=== PATIENT | female | born 1955 | race Caucasian/White ===

== ENCOUNTER 2021-08-24 11:54 | Inpatient (IN) | payer BC ==
[2021-08-24] VITALS (20 sets, daily range): BP systolic 95–148; BP diastolic 45–101
[~2021-08-24] VITALS: Ht 121.9 cm; Wt 49.0 kg
[~2021-08-24 11:54] MED LIST: LORA-259 PO
--- NOTE | 2021-08-24 11:59 | NUR ---
SEEN AND EXAMINED BY .
[2021-08-24] MEDS ORDERED: ONDANSETRON HCL/PF 4 MG/2 ML VIAL IVP ONE (12:00)
[2021-08-24] MEDS ORDERED: PANTOPRAZOLE 40 MG VIAL IV ONE (12:00)
[2021-08-24] MEDS ORDERED: OCTREOTIDE 50 MCG/ML AMPUL IV ONE (12:00)
[2021-08-24] MEDS ORDERED: IV NS 0.9% 1,000 ML BAG IV ONE (12:00)
[2021-08-24] MEDS ORDERED: ONDANSETRON HCL/PF 4 MG/2 ML VIAL ONE ×2 (12:04→14:19)
[2021-08-24] MEDS ORDERED: PANTOPRAZOLE 40 MG VIAL ONE (12:04)
--- NOTE | 2021-08-24 12:08 | NUR ---
IV LINE ESTABLISHED BLOOD DRAWN AND SENT TO LAB.
[2021-08-24] MEDS ORDERED: OCTREOTIDE 100 MCG/ML VIAL ONE (12:11)
[2021-08-24 12:17] LABS: BASOPHILS # (AUTO) 0.2 K/uL (0.0-0.2); BASOPHILS % (AUTO) 0.7 % (0.0-2.0); HEMATOCRIT 32 % (33-45); HEMOGLOBIN 10.4 g/dL (11.5-14.8); LYMPHOCYTES # (AUTO) 1.2 K/uL (0.8-4.8); LYMPHOCYTES % (AUTO) 5.6 % (20.0-44.0); MEAN CORPUSCULAR HGB CONC 33 g/dl (31.0-36.0); MEAN CORPUSCULAR VOLUME 79 fL (82-100); MONOCYTES # (AUTO) 1.8 K/uL (0.1-1.30); NEUTROPHILS # (AUTO) 19.1 K/uL (1.8-8.9); NEUTROPHILS % (AUTO) 85.7 % (43.0-81.0); PLATELET COUNT (AUTO) 474 K/uL (150-450); RED BLOOD CELL COUNT(AUTO) 4.02 MIL/uL (4.0-5.2); WHITE BLOOD COUNT (AUTO) 22.2 K/uL (4.3-11.0)
[2021-08-24 12:28] LABS: CALCIUM, SERUM 9.2 mg/dL (8.5-10.1); CREATININE 0.9 mg/dL (0.6-1.3); POTASSIUM 4.2 mmol/L (3.5-5.1)
[2021-08-24 12:33] LABS: ALBUMIN 3.5 g/dL (3.4-5.0); BILIRUBIN,DIRECT 0.1 mg/dL (0.0-0.2); BILIRUBIN,TOTAL 0.4 mg/dL (0.2-1.0); TOTAL PROTEIN, SERUM 7.3 g/dL (6.4-8.2)
[2021-08-24] MEDS ORDERED: FAMO-131 PO (13:31)
[2021-08-24] MEDS ORDERED: HYDR-4275 PO (13:31)
[2021-08-24] MEDS ORDERED: SUCR1TAB PO (13:31)
[2021-08-24] MEDS ORDERED: MORPHINE SULFATE INJ 2 MG/ML DISP.SYRIN IV ONE (14:00)
[2021-08-24] MEDS ORDERED: PIPERACILLIN /TAZOBACTAM 3.375 G in IV D5W 50 ML IV ONE (14:00)
[2021-08-24] MEDS ORDERED: MORPHINE SULFATE INJ 4 MG/ML DISP.SYRIN ONE (14:19)
--- NOTE | 2021-08-24 14:25 | NUR ---
PT C/O ABD PAIN & NAUSEA, MEDICATED PER ERMD ORDER, PT YAYA WELL. WILL CONT TO MONITOR.
[2021-08-24] MEDS ORDERED: ONDANSETRON HCL/PF 4 MG/2 ML VIAL IVP PRN (14:30)
[2021-08-24] MEDS ORDERED: MAGNESIUM HYDROXIDE 30 ML UDC PO PRN (14:30)
[2021-08-24] MEDS ORDERED: MAG HYDROX/AL HYDROX/SIMETH 30 ML UDC PO PRN (14:30)
[2021-08-24] MEDS ORDERED: ACETAMINOPHEN 325 MG TABLET PO PRN (14:30)
[2021-08-24] MEDS ORDERED: Z GUARD REMEDY 2 OZ OINT TP PRN (14:30)
--- NOTE | 2021-08-24 15:00 | NUR ---
PT HR 195, SHOWING SVT ON EKG. NOTIFIED ERMD.
[2021-08-24] MEDS ORDERED: ADENOSINE 6 MG/2 ML VIAL ONE (15:07)
--- NOTE | 2021-08-24 15:14 | NUR ---
GIVEN 6MG OF ADENOSIN IVP
--- NOTE | 2021-08-24 15:17 | NUR ---
GIVEN 12 MG OF ADENOSINE IVP.
[2021-08-24] MEDS ORDERED: PROPOFOL 20 ML IV ONE (15:26)
[2021-08-24] MEDS ORDERED: ADENOSINE 6 MG/2 ML VIAL IVP ONE ×2 (15:30)
--- NOTE | 2021-08-24 15:33 | NUR ---
SYNCHRONIZED CARDIOVERSION PERFORMED, HR CONVERTED TO SINUS TACH, HR 127.
--- NOTE | 2021-08-24 15:40 | NUR ---
PT AAOX4, SLEEPY. DENIES CP, SOB, DIZZINESS, N/V AT THIS TIME. WILL CONT TO MONITOR.
--- NOTE | 2021-08-24 15:41 | NUR ---
CALLED ICU FOR REPORT RN NOT AVAILABLE.
--- NOTE | 2021-08-24 15:55 | NUR ---
REPORT GIVEN RN SHARAN FOR THADDEUS.
[2021-08-24] MEDS ORDERED: IV NS 0.9% 500 ML BAG IV ONE (16:00)
[2021-08-24] MEDS ORDERED: PROPOFOL 200 MG/20 ML VIAL IV ONE (16:00)
--- NOTE | 2021-08-24 16:10 | NUR ---
Patient received from ED, noted with sinus tach and no c/o chest pain. Patient is alert and oriented and anxious. Patient provided decreased stimuli. Nursing interventions and assessments started.
[2021-08-24] MEDS: IV NS 0.9% 1,000 ML IV PRN (16:20)
[2021-08-24] MEDS: PIPERACILLIN /TAZOBACTAM 3.375 G in IV D5W 50 ML IV SCH ×2 (18:17→23:45)
[2021-08-24] MEDS: HYDROMORPHONE 1 MG/1 ML DISP.SYRIN IV PRN (18:21)
--- NOTE | 2021-08-24 18:37 | NUR ---
TOOL STORAGE ATTENDANT CLOSING NOTES Patient is alert and oriented and resting in bed. Tele monitor showing sinus tachycardia.Noted with right upper arm 20 gauze saline lock and left upper arm midline 20 gauze running normal saline at 100 cc/hour. Patient provided bed workman for urine. Patient c/o 8/10 back pain and requested pain medication. Patient given prn pain med with good effect.Will endorse to next shift for THADDEUS. Patient is in good stable condition and with family member at bedside.
[2021-08-24 20:17] LABS: BASOPHILS % (AUTO) 0.1 % (0.0-2.0); HEMATOCRIT 25 % (33-45); HEMOGLOBIN 8.1 g/dL (11.5-14.8); LYMPHOCYTES # (AUTO) 1.3 K/uL (0.8-4.8); LYMPHOCYTES % (AUTO) 5.8 % (20.0-44.0); MEAN CORPUSCULAR HGB CONC 33 g/dl (31.0-36.0); MEAN CORPUSCULAR VOLUME 79 fL (82-100); MONOCYTES # (AUTO) 2.9 K/uL (0.1-1.30); MONOCYTES % (AUTO) 12.9 % (2.0-12.0); NEUTROPHILS # (AUTO) 18.5 K/uL (1.8-8.9); NEUTROPHILS % (AUTO) 81.2 % (43.0-81.0); PLATELET COUNT (AUTO) 331 K/uL (150-450); RED BLOOD CELL COUNT(AUTO) 3.08 MIL/uL (4.0-5.2); WHITE BLOOD COUNT (AUTO) 22.8 K/uL (4.3-11.0)
[2021-08-24] MEDS: PANTOPRAZOLE 40 MG VIAL IV SCH (21:44)
[2021-08-25] VITALS (48 sets, daily range): BP systolic 96–145; BP diastolic 50–94
[2021-08-25] MEDS: HYDROMORPHONE 1 MG/1 ML DISP.SYRIN IV PRN ×4 (00:27→22:21)
[2021-08-25] MEDS: IV NS 0.9% 1,000 ML IV PRN ×3 (01:26→23:18)
--- NOTE | 2021-08-25 01:33 | NUR ---
RN notes (beginning of shift) Alert and oriented, able to communicate needs verbally. In bed resting comfortably with no distress noted. On 3 lpm O2 via nasal cannula tolerating well. Still tachycardic with HR of 120 to 130bpm. As of this time, no complaint of pain or discomfort. Continent, uses bed workman. On 100mils/hr NS, tolerating well. NPO. Kept clean and dry. Will continue to monitor.
[2021-08-25] MEDS: PIPERACILLIN /TAZOBACTAM 3.375 G in IV D5W 50 ML IV SCH ×4 (05:40→23:59)
[2021-08-25 05:59] LABS: CALCIUM, SERUM 7.9 mg/dL (8.5-10.1); CREATININE 0.5 mg/dL (0.6-1.3); MAGNESIUM 2.1 mg/dL (1.8-2.4); PHOSPHORUS 3.2 mg/dL (2.5-4.9); POTASSIUM 4.2 mmol/L (3.5-5.1)
[2021-08-25 06:14] LABS: BASOPHILS % (AUTO) 0.2 % (0.0-2.0); HEMATOCRIT 21 % (33-45); LYMPHOCYTES # (AUTO) 2.1 K/uL (0.8-4.8); LYMPHOCYTES % (AUTO) 9.6 % (20.0-44.0); MEAN CORPUSCULAR HGB CONC 34 g/dl (31.0-36.0); MEAN CORPUSCULAR VOLUME 79 fL (82-100); MONOCYTES # (AUTO) 1.9 K/uL (0.1-1.30); MONOCYTES % (AUTO) 8.7 % (2.0-12.0); NEUTROPHILS # (AUTO) 18.1 K/uL (1.8-8.9); NEUTROPHILS % (AUTO) 81.5 % (43.0-81.0); PLATELET COUNT (AUTO) 274 K/uL (150-450); RED BLOOD CELL COUNT(AUTO) 2.62 MIL/uL (4.0-5.2); WHITE BLOOD COUNT (AUTO) 22.2 K/uL (4.3-11.0)
--- NOTE | 2021-08-25 06:52 | NUR ---
RN notes (end of shift) Patient was awake all night complaining of abdominal pain, Dilaudid 1mg administered x2. At about 03:00 patient was requesting for sleeping pills, explained that it is already too late for sleeping pill. Patient understood. Had urine output every hour using bed workman. Vital signs wnl. No distress noted. Still on 3lpm O2 via nasal cannula. Lab called regarding Hemoglobin level 10.4 to 7.0. Called MD, waiting for response. Kept clean and dry. Will endorse to next shift for continuity of care.
--- NOTE | 2021-08-25 06:57 | NUR ---
RN notes (end of shift) No significant change of condition. Still sedated. No physical manifestation of pain or discomfort. Vital signs wnl. Kept clean and dry. Will endorse to next shift for continuity of care.
--- NOTE | 2021-08-25 07:30 | NUR ---
CIVIL ENGINEERING PROFESSOR AM NOTES PT ALERT ORIENTED X 4, ABLE TO VERBALIZED NEEDS. NOT IN ANY DISTRESS, ON 3L O2 VIA NASAL CANULA, O2 SAT 88%. SINUS RHYTHM HR 94 ON MONITOR. DENIES CHEST PAIN OR DISCOMFORT, MAY HAVE ICE CHIPS, USES BED ROMERO. NS AT 100 ML/HR, INFUSING WELL ON LEFT UPPER ARM MIDLINE. SITE CLEAR. POC DISCUSSED, VERBALIZED UNDERSTANDING. BED LOW LOCKED, SR UPX 2, WILL CONTINUE TO MONITOR.
[2021-08-25] MEDS: PANTOPRAZOLE 40 MG VIAL IV SCH ×2 (08:42→20:20)
[2021-08-25] MEDS: HYDROCODONE/APAP 5/325MG TABLET PO SCH (08:42)
--- NOTE | 2021-08-25 09:30 | NUR ---
RN NOTES DUE MEDS GIVEN
--- NOTE | 2021-08-25 11:36 | NUR ---
RN NOTES SPOKE WITH [facility] LAB STAFF REGARDING FAXED ORDER FOR STAT REPEAT HEMOGLOBIN HEMATOCRIT. PER HIM, FAX RECEIVED.
[2021-08-25 11:59] LABS: HEMOGLOBIN 6.5 g/dL (11.5-14.8)
[2021-08-25 14:39] LABS: HEMOGLOBIN 6.8 g/dL (11.5-14.8)
--- NOTE | 2021-08-25 18:39 | NUR ---
SECURITY GUARD SUPERVISOR CLOSING NOTES PT ALERT ORIENTED X 4, RESTING IN BED. ABLE TO VERBALIZED NEEDS. NOT IN ANY DISTRESS, ON 3L O2 VIA NASAL CANULA, O2 SAT 88%-97%. SINUS RHYTHM HR 90s - 111 ON MONITOR. DENIES CHEST PAIN OR DISCOMFORT, SOFT DIET. USES BED ROMERO. NS AT 100 ML/HR, INFUSING WELL ON LEFT UPPER ARM MIDLINE. SITE CLEAR. BED LOW LOCKED, SR UPX 2, WILL ENDORSED TO NEXT SHIFT FOR THADDEUS. PATIENT HAD 1 UNIT PRBC. FOR REPEAT HGB/HCT 2200
--- NOTE | 2021-08-25 19:00 | NUR ---
RN NOTE RECEIVED PATIENT IN BED RESTING ALERT ORIENTED X4 VERBALLY RESPONSIVE ON 3L OXYGEN VIA NASAL CANNULA O2:98% IV SITE IS ON LEFT UPPER ARM MIDLINE INTACT PATENT IV HYDRATION NS 100CC/HR RUNNING,CONTENT BOWEL/BLADDER,SAFETY MEASURE IMPLEMENT BED IN LOW POSITION AND LOCKED CALL LIGHT WITHIN REACH,CONTINUE TO MONITOR. Addendum: 08/25/21 at 2035 by BRANDT DIALLO RN PLS DISREGARD THIS NOTE IS WRONG DOCUMENTATION
--- NOTE | 2021-08-25 22:21 | NUR ---
RN NOTE DILAUDID 1ML PAIN MED PRN GIVEN FOR BACK PAIN 05/18 CONTINUE TO MONITOR
[2021-08-25 22:25] LABS: HEMOGLOBIN 7.7 g/dL (11.5-14.8)
[2021-08-26] VITALS (17 sets, daily range): BP systolic 96–137; BP diastolic 46–101
--- NOTE | 2021-08-26 | NUR ---
RN NOTE PAIN IS 2/10 CONTINUE TO MONITOR.
--- NOTE | 2021-08-26 01:00 | NUR ---
RN NOTE CAUGHT URINE FOR URINE ANALYSIS AND SENT TO LAB,CONTINUE TO MONITOR.
[2021-08-26 02:06] LABS: BILIRUBIN,URINE NEGATIVE (NEGATIVE); COLOR,URINE YELLOW (YELLOW); LEUKOCYTE ESTERASE ,URINE NEGATIVE (NEGATIVE); NITRITE, URINE NEGATIVE (NEGATIVE); PROTEIN,URINE NEGATIVE (NEGATIVE); UGLUCOSE NEGATIVE (NEGATIVE); UROBILINOGEN,URINE 0.2 EU/dL (0.2)
[2021-08-26 05:31] LABS: BASOPHILS % (AUTO) 0.3 % (0.0-2.0); EOSINOPHILS % (AUTO) 0.1 % (0.0-6.0); HEMATOCRIT 22 % (33-45); HEMOGLOBIN 7.6 g/dL (11.5-14.8); LYMPHOCYTES # (AUTO) 2.4 K/uL (0.8-4.8); LYMPHOCYTES % (AUTO) 25.7 % (20.0-44.0); MEAN CORPUSCULAR HGB CONC 34 g/dl (31.0-36.0); MEAN CORPUSCULAR VOLUME 81 fL (82-100); MONOCYTES % (AUTO) 10.6 % (2.0-12.0); NEUTROPHILS # (AUTO) 5.8 K/uL (1.8-8.9); NEUTROPHILS % (AUTO) 63.3 % (43.0-81.0); PLATELET COUNT (AUTO) 188 K/uL (150-450); RED BLOOD CELL COUNT(AUTO) 2.72 MIL/uL (4.0-5.2); WHITE BLOOD COUNT (AUTO) 9.2 K/uL (4.3-11.0)
[2021-08-26] MEDS: PIPERACILLIN /TAZOBACTAM 3.375 G in IV D5W 50 ML IV SCH ×3 (05:38→17:17)
[2021-08-26 05:39] LABS: ALBUMIN 2.6 g/dL (3.4-5.0); BILIRUBIN,TOTAL 0.6 mg/dL (0.2-1.0); CALCIUM, SERUM 7.6 mg/dL (8.5-10.1); CREATININE 0.4 mg/dL (0.6-1.3); POTASSIUM 3.6 mmol/L (3.5-5.1); TOTAL PROTEIN, SERUM 4.9 g/dL (6.4-8.2)
[2021-08-26 06:28] LABS: BACTERIA,URINE Few /HPF (None Seen); SQUAMOUS EPITHELIAL CELL,UR Few /HPF (None Seen)
--- NOTE | 2021-08-26 06:31 | NUR ---
RN NOTE PATIENT REMAINS ALERT ORIENTED X4 VERBALLY RESPONSIVE ON 3L OXYGEN VIA NASAL CANNULA O2:97% IV NS RUNNING 100CC/HR ON LEFT UPPER ARM MIDLINE,HR 75 -90 SINUS RHYTHM ALL DUE MEDS GIVEN MD ORDERED KEPT CLEAN AND DRY ALL TIME,KEPT CALL LIGHT WITHIN REACH, KEPT COMFORTABLE ALL NEEDS MET,ENDORSE NEXT COMING SHIFT FOR CONTINUATION OF CARE.
--- NOTE | 2021-08-26 07:05 | NUR ---
RN OPENING NOTES Received patient in bed. AOX4, ABLE TO MAKE NEEDS KNOWN, ON O2 @ 3LPM VIA NC SATURATING @ 99%. NO S/O OF ANY ACUTE DISTRESS NOTED. SAFETY PRECAUTIONS MAINTAINED AT ALL TIMES. WILL CONTINUE TO MONITOR
[2021-08-26] MEDS: HYDROCODONE/APAP 5/325MG TABLET PO SCH (08:55)
[2021-08-26] MEDS: PANTOPRAZOLE 40 MG VIAL IV SCH ×2 (08:55→21:09)
[2021-08-26 10:55] LABS: FERRITIN 149 ng/mL (8-388)
[2021-08-26] MEDS: FERROUS SULFATE (325 MG) 325 MG/TAB TABLET PO SCH ×3 (11:17→16:30)
[2021-08-26] MEDS ORDERED: IV NS 0.9% 1,000 ML IV PRN (11:39)
[2021-08-26 12:17] LABS: IRON, SERUM 98 ug/dl (50-175); TOTAL IRON BINDING CAPACITY 228 ug/dl (250-450)
--- NOTE | 2021-08-26 13:03 | NUR ---
Transferred patient to [facility] room 324-2 per ACLS protocol. Report given to OMAR Santoyo @[facility] for continuity of care
--- NOTE | 2021-08-26 13:07 | NUR ---
COMBINATION WELDERSPECIMEN TRANSPORTER NOTES RECEIVED PATIENT FROM ICU. REPORT RECEIVED FROM OMAR CHASE. PT IS A/O X 4. ABLE TO MAKE NEEDS KNOWN. NO S/SX OF DISTRESS NOTED. ON 3L OXYGEN SUPPLEMENTATION VIA NASAL CANNULA. BREATHING IS EVEN AND UNLABORED. NO C/O PAIN AT THIS TIME. ORIENTED PT TO UNIT, CALL LIGHT AND STAFF. IV ACCESS KODAK MIDLINE PATENT AND INTACT. EXTERNAL TRANSCRIPTION SPECIALIST PLACED ON PATIENT WITH SR READING IN 70'S. SAFETY MEASURES IN PLACE WITH BED LOCKED AT LOW POSITION AND SIDE RAILS UP X 2. WILL CONTINUE TO MONITOR PATIENT FOR CHANGES IN CONDITION.
[2021-08-26 14:11] LABS: HEMOGLOBIN 7.9 g/dL (11.5-14.8)
--- NOTE | 2021-08-26 19:05 | NUR ---
ORNAMENTAL PAINTER CLOSING NOTES PT IS RESTING COMFORTABLY IN BED. NO S/SX OF DISTRESS NOTED. ON 3L OXYGEN SUPPLEMENTATION VIA NASAL CANNULA. BREATHING IS EVEN AND UNLABORED. NO C/O PAIN AT THIS TIME. NO SIGNIFICANT CHANGES IN CONDITIONS. IV ACCESS KODAK MIDLINE PATENT AND INTACT WITH NS RUNNING AT 40MLS/HR. EXTERNAL CAREER DEVELOPMENT FACILITATOR PLACED ON PATIENT WITH SR READING IN 70'S. SAFETY MEASURES IN PLACE WITH BED LOCKED AT LOW POSITION AND SIDE RAILS UP X 2. WILL ENDORSE CONTINUITY OF CARE TO ONCOMING SHIFT.
[2021-08-26 20:55] LABS: HEMOGLOBIN 7.8 g/dL (11.5-14.8)
[2021-08-26] MEDS: LORAZEPAM INJ 2 MG/ML VIAL IV PRN (21:27)
--- NOTE | 2021-08-26 23:00 | NUR ---
CIPHER EXPERT NOTE PATIENT NOTED TO HAVE SCANT AMOUNT OF BLACK STOOL WHEN ASSISTED TO THE BATHROOM. PER PATINET SHE DID NOT EVEN FEEL THAT SHE HAD BOWEL MOVEMENT. WILL CONTINUE TO MONITOR.
[2021-08-27 00:32] VITALS: BP 143/96
[2021-08-27] MEDS: PIPERACILLIN /TAZOBACTAM 3.375 G in IV D5W 50 ML IV SCH ×2 (00:44→05:41)
[2021-08-27 03:59] VITALS: BP 111/70
[2021-08-27 06:52] LABS: ALBUMIN 2.5 g/dL (3.4-5.0); BILIRUBIN,TOTAL 0.3 mg/dL (0.2-1.0); CALCIUM, SERUM 8.4 mg/dL (8.5-10.1); CREATININE 0.4 mg/dL (0.6-1.3); POTASSIUM 3.5 mmol/L (3.5-5.1); TOTAL PROTEIN, SERUM 5.3 g/dL (6.4-8.2)
[2021-08-27 07:05] LABS: BASOPHILS % (AUTO) 0.3 % (0.0-2.0); HEMATOCRIT 23 % (33-45); HEMOGLOBIN 7.8 g/dL (11.5-14.8); LYMPHOCYTES # (AUTO) 2.7 K/uL (0.8-4.8); LYMPHOCYTES % (AUTO) 34.1 % (20.0-44.0); MEAN CORPUSCULAR HGB CONC 34 g/dl (31.0-36.0); MEAN CORPUSCULAR VOLUME 84 fL (82-100); MONOCYTES # (AUTO) 0.8 K/uL (0.1-1.30); NEUTROPHILS # (AUTO) 4.3 K/uL (1.8-8.9); NEUTROPHILS % (AUTO) 54.6 % (43.0-81.0); PLATELET COUNT (AUTO) 217 K/uL (150-450); RED BLOOD CELL COUNT(AUTO) 2.75 MIL/uL (4.0-5.2); WHITE BLOOD COUNT (AUTO) 7.8 K/uL (4.3-11.0)
--- NOTE | 2021-08-27 07:22 | NUR ---
MOLDER SWEEP OPENING NOTES RECEIVED PATIENT AWAKE IN BED IN NO ACUTE SIGNS OF DISTRESS. A/OX4. ABLE TO MAKE NEEDS KNOWN, DENIES PAIN OR ANY DISCOMFORTS AT THIS TIME. ON PRN 02 VIA N/C AT 2LPM, BREATHING EVEN AND UNLABORED, NO SOB NOTED. ON TELE-MONITOR WITH CURRENT READING OF NSR, HR ON THE 80'S, NO C/O CARDIAC DISTRESS VOICED AT THIS TIME. KODAK MIDLINE INTACT WITH IVF OF NS @ 40ML/HR INFUSING WELL. SAFETY MEASURES IN PLACE: BED IN LOWEST LOCKED POSITION WITH SR UPX2. CALL LIGHT W/I EASY REACH OF PT. WILL CONTINUE TO MONITOR PT ACCORDINGLY.
--- NOTE | 2021-08-27 07:26 | NUR ---
ms rn note report given to OMAR Raphael for continuity of care.
[2021-08-27 08:00] VITALS: BP_SYST 132; BP_SYST 143; BP_DIAS 70; BP_DIAS 74
[2021-08-27] MEDS: PANTOPRAZOLE 40 MG VIAL IV SCH ×2 (09:00→20:32)
[2021-08-27] MEDS: HYDROCODONE/APAP 5/325MG TABLET PO SCH (09:00)
[2021-08-27] MEDS: FERROUS SULFATE (325 MG) 325 MG/TAB TABLET PO SCH ×3 (09:00→16:09)
[2021-08-27] MEDS: METOPROLOL TARTRATE 25 MG TABLET PO SCH ×2 (11:18→20:33)
[2021-08-27 12:00] VITALS: BP 117/75
--- NOTE | 2021-08-27 12:38 | NUR ---
RN NOTES SEEN BY DR HUMPHREY, NO PROCEDURE NEEDED AT THIS TIME PT WILL HAVE EGD OUTPT NEXT WEEK.
[2021-08-27 15:23] LABS: HEMOGLOBIN 8.1 g/dL (11.5-14.8)
[2021-08-27 16:00] VITALS: BP 117/75
--- NOTE | 2021-08-27 18:35 | NUR ---
CIGARETTE PACKING MACHINE OPERATOR CLOSING NOTES PATIENT IN BED AWAKE AND WATCHING TV AT THIS TIME. HOB ELEVATED. A/OX4. ABLE TO MAKE NEEDS KNOWN. ON PRN 02 VIA N/C AT 2LPM, BREATHING EVEN AND UNLABORED, NO SOB NOTED. ON TELE-MONITOR WITH CURRENT READING OF ST, HR 104, NO C/O CARDIAC DISTRESS VOICED DURING SHIFT. KODAK MIDLINE INTACT, PATENT AND FLUSHES WELL. ALL NEEDS AND CARE ATTENDED WELL. SAFETY MEASURES KEPT IN PLACE: BED IN LOWEST LOCKED POSITION WITH SR UPX2. CALL LIGHT W/I EASY REACH OF PT. WILL ENDORSE THADDEUS TO GERIATRIC NURSE NURSE.
--- NOTE | 2021-08-27 19:30 | NUR ---
RN OPENING NOTE PATIENT IN BED, AWAKE AND SITTING UP. PATIENT IS ABLE TO MAKE NEEDS KNOWN, A/O X 4. PATIENT IS CURRENTLY ON RA TOLERATING WELL. NOT ARISTEO ANY APPARENT RESPIRATORY DISTRESS. PATIENT HAS 2LPM PRN FOR PATIENT'S COMFORT. TELE MONITOR READS ST 103 BPM, NO CHEST PAIN. PATIENT HAS A KODAK MIDLINE PATENT AND INTACT, FLUSHING WELL, SALINE LOCKED ONLY. NO REPORTS OF PAIN AT THIS TIME. SAFETY MEASURES IN PLACE: BED LOCKED AND IN LOWEST POSITION, CALL LIGHT WITHIN REACH, SIDE RAILS UP. WILL MONITOR PATIENT CLOSELY.
[2021-08-27 20:00] VITALS: BP 146/66
[2021-08-27] MEDS: LORAZEPAM INJ 2 MG/ML VIAL IV PRN (20:33)
--- NOTE | 2021-08-27 20:35 | NUR ---
ATIVAN GIVEN FOR ANXIETY AND TYLENOL FOR TEMP 99.9. WILL REASSESS MED EFFECTIVENESS AT A LATER TIME
[2021-08-27 22:48] LABS: HEMOGLOBIN 8.3 g/dL (11.5-14.8)
[2021-08-28] VITALS (7 sets, daily range): BP systolic 118–162; BP diastolic 71–93
[2021-08-28 06:34] LABS: BASOPHILS % (AUTO) 0.3 % (0.0-2.0); EOSINOPHILS % (AUTO) 2.8 % (0.0-6.0); HEMATOCRIT 26 % (33-45); HEMOGLOBIN 8.6 g/dL (11.5-14.8); LYMPHOCYTES # (AUTO) 3.4 K/uL (0.8-4.8); LYMPHOCYTES % (AUTO) 43.3 % (20.0-44.0); MEAN CORPUSCULAR HGB CONC 34 g/dl (31.0-36.0); MEAN CORPUSCULAR VOLUME 83 fL (82-100); NEUTROPHILS # (AUTO) 3.2 K/uL (1.8-8.9); NEUTROPHILS % (AUTO) 40.6 % (43.0-81.0); PLATELET COUNT (AUTO) 246 K/uL (150-450); RED BLOOD CELL COUNT(AUTO) 3.08 MIL/uL (4.0-5.2); WHITE BLOOD COUNT (AUTO) 7.8 K/uL (4.3-11.0)
--- NOTE | 2021-08-28 06:39 | NUR ---
RN CLOSING NOTE PATIENT IN BED, SLEEPING, EASILY AWAKENED. PATIENT IS ABLE TO MAKE NEEDS KNOWN, A/O X 4. PATIENT IS CURRENTLY ON RA TOLERATING WELL. NOT IN ANY APPARENT RESPIRATORY DISTRESS. TELE MONITOR READS ST 103 BPM, NO CHEST PAIN. PATIENT HAS A KODAK MIDLINE PATENT AND INTACT, FLUSHING WELL, SALINE LOCKED ONLY. NO REPORTS OF PAIN AT THIS TIME. ANXIETY MANAGED WITH ATIVAN. SAFETY MEASURES IMPLEMENTED. ALL NEEDS MET AND ATTENDED. ALL ORDERS CARRIED OUT. WILL ENDORSE TO DAY SHIFT NURSE FOR THADDEUS.
[2021-08-28 06:50] LABS: ALBUMIN 2.5 g/dL (3.4-5.0); BILIRUBIN,TOTAL 0.3 mg/dL (0.2-1.0); CREATININE 0.4 mg/dL (0.6-1.3); MAGNESIUM 1.9 mg/dL (1.8-2.4); PHOSPHORUS 3.2 mg/dL (2.5-4.9); POTASSIUM 3.7 mmol/L (3.5-5.1); TOTAL PROTEIN, SERUM 5.5 g/dL (6.4-8.2)
--- NOTE | 2021-08-28 07:30 | NUR ---
NOTE TAKER OPENING NOTES PATIENT RECEIVED ASLEEP IN BED, EASILY AWAKENS. A/OX4. ABLE TO MAKE NEEDS KNOWN, DENIES PAIN OR ANY DISCOMFORTS AT THIS TIME. ON ROOM AIR, BREATHING EVEN AND UNLABORED, NO SOB NOTED. ON TELE-MONITOR WITH CURRENT READING OF NSR, CURRENTLY WITH HR OF 88, NO C/O CARDIAC DISTRESS VOICED AT THIS TIME. KODAK MIDLINE INTACT, PATENT AND FLUSHES WELL. SAFETY MEASURES IN PLACE: BED IN LOWEST LOCKED POSITION WITH SR UPX2. CALL LIGHT W/I EASY REACH OF PT. WILL CONTINUE TO MONITOR PT ACCORDINGLY.
[2021-08-28] MEDS: METOPROLOL TARTRATE 25 MG TABLET PO SCH ×2 (08:22→20:46)
[2021-08-28] MEDS: FERROUS SULFATE (325 MG) 325 MG/TAB TABLET PO SCH ×3 (08:22→16:19)
[2021-08-28] MEDS: PANTOPRAZOLE 40 MG VIAL IV SCH (08:22)
[2021-08-28] MEDS: HYDROCODONE/APAP 5/325MG TABLET PO SCH (08:23)
[2021-08-28] MEDS ORDERED: INFLUENZA VACCINE 2021-22 0.5 ML DISP.SYRIN IM ONE (11:30)
[2021-08-28] MEDS: HYDROMORPHONE 1 MG/1 ML DISP.SYRIN IV PRN ×2 (12:17→18:22)
--- NOTE | 2021-08-28 12:23 | NUR ---
RN NOTES PT MOANING AND GRIMACING WITH C/O PAIN ON MID UPPER CHEAT AND LOWER OBEY PRN DILAUDID 1MG/ML IVP ADMINISTERED AT 1217. WILL CONTINUE TO MONITOR AND REASSESS PT.
[2021-08-28] MEDS: PANTOPRAZOLE 40 MG TABLET.DR PO SCH (16:20)
--- NOTE | 2021-08-28 16:58 | NUR ---
RN NOTES PT FOR EGD TOMORROW BY DR HUMPHREY, PROCEDURE EXPLAINED TO PT AND VERBALIZED UNDERSTANDING. ALL CONSENTS SIGNED AND NPO EXCEPT MEDS TO BE ENFORCED POST MIDNIGHT.
--- NOTE | 2021-08-28 18:27 | NUR ---
RN NOTES PT C/O PAIN ON MID UPPER CHEST AND LOWER BACK PRN DILAUDID 1MG/ML IVP ADMINISTERED AT 1822. WILL CONTINUE TO MONITOR AND REASSESS PT.
--- NOTE | 2021-08-28 18:50 | NUR ---
BALLOON ARTIST CLOSING NOTES PATIENT RESTING IN BED AT THIS TIME. A/OX4. ABLE TO MAKE NEEDS KNOWN. ON ROOM AIR, BREATHING EVEN AND UNLABORED, NO SOB NOTED DURING SHIFT. ON TELE-MONITOR WITH CURRENT READING OF NSR, HR 99. KODAK MIDLINE INTACT, PATENT AND FLUSHES WELL. ALL NEEDS AND CARE ATTENDED WELL. PT FOR EGD TOMORROW, NPO POST MIDNIGHT TO BE ENFORCED. SAFETY MEASURES KEPT IN PLACE: BED IN LOWEST LOCKED POSITION WITH SR UPX2. CALL LIGHT W/I EASY REACH OF PT. WILL ENDORSE THADDEUS TO [employer] DYNAMICS CONSULTANT NURSE.
--- NOTE | 2021-08-28 19:35 | NUR ---
HELP DESK SUPERVISOR OPENING NOTE RECEIVED PATIENT IN BED. A/OX4. NO S/S OF APPARENT DISTRESS ON ROOM AIR. DENIES PAIN AT THIS TIME. PATIENT ABLE TO MAKE NEEDS KNOWN-- NEEDS ATTENDED AT THE MOMENT. TELE MONITOR READING SR IN THE 90'S NO FLUIDS RUNNING AT THIS TIME. SAFETY IN PLACE. WILL CONTINUE WITH PLAN OF CARE FOR PATIENT.
[2021-08-28] MEDS: LORAZEPAM INJ 2 MG/ML VIAL IV PRN (21:26)
--- NOTE | 2021-08-28 21:26 | NUR ---
CAR INSTALLATIONS SUPERVISOR NOTE 0.5ML ATIVAN GIVEN AT THIS TIME PER PATIENT REQUEST. PER PATIENT SHE IS VERY ANXIOUS THINKING ABOUT THE PROCEDURE TOMORROW. THERAPEUTIC COMMUNICATION APPLIED. SATURATION WNL 97%. WILL CONTINUE TO MONITOR.
[2021-08-29] VITALS (7 sets, daily range): BP systolic 113–155; BP diastolic 55–94
[2021-08-29 06:47] LABS: BASOPHILS % (AUTO) 0.2 % (0.0-2.0); EOSINOPHILS % (AUTO) 2.9 % (0.0-6.0); HEMATOCRIT 26 % (33-45); HEMOGLOBIN 8.8 g/dL (11.5-14.8); LYMPHOCYTES # (AUTO) 3.1 K/uL (0.8-4.8); LYMPHOCYTES % (AUTO) 32.6 % (20.0-44.0); MEAN CORPUSCULAR HGB CONC 34 g/dl (31.0-36.0); MEAN CORPUSCULAR VOLUME 83 fL (82-100); MONOCYTES # (AUTO) 1.2 K/uL (0.1-1.30); NEUTROPHILS % (AUTO) 52.3 % (43.0-81.0); PLATELET COUNT (AUTO) 303 K/uL (150-450); RED BLOOD CELL COUNT(AUTO) 3.16 MIL/uL (4.0-5.2); WHITE BLOOD COUNT (AUTO) 9.6 K/uL (4.3-11.0)
[2021-08-29 07:26] LABS: CALCIUM, SERUM 8.6 mg/dL (8.5-10.1); CREATININE 0.4 mg/dL (0.6-1.3); PHOSPHORUS 4.3 mg/dL (2.5-4.9); POTASSIUM 3.8 mmol/L (3.5-5.1)
--- NOTE | 2021-08-29 07:37 | NUR ---
REAL ESTATE LEASING AGENT OPENING NOTES RECEIVED Pt ASLEEP IN BED. EASILY AROUSABLE, A/OX4. NO S/S OF APPARENT DISTRESS. BREATHING ON ROOM AIR, IS EVEN AND UNLABORED. DENIES PAIN AT THIS TIME. IV ACCESS ON L UA MIDLINE, SALINE LOCK. SAFETY MEASURE ARE IN PLACE, BED IS LOCKED AND IN LOWEST POSITION. SIDE RAILS UP X 2. CALL LIGHT AND BEDSIDE TABLE ARE WITHIN REACH. WILL CONTINUE TO MONITOR THROUGHOUT THE SHIFT.
--- NOTE | 2021-08-29 07:39 | NUR ---
telemarketer note report given to Luisana benjamin for continuity of care.
[2021-08-29] MEDS: METOPROLOL TARTRATE 25 MG TABLET PO SCH ×2 (08:25→21:38)
[2021-08-29] MEDS: PANTOPRAZOLE 40 MG TABLET.DR PO SCH ×2 (08:25→16:23)
[2021-08-29] MEDS: HYDROCODONE/APAP 5/325MG TABLET PO SCH (08:26)
[2021-08-29] MEDS: FERROUS SULFATE (325 MG) 325 MG/TAB TABLET PO SCH ×3 (08:26→16:23)
[2021-08-29] MEDS: HYDROMORPHONE 1 MG/1 ML DISP.SYRIN IV PRN ×3 (10:22→22:31)
--- NOTE | 2021-08-29 13:58 | NUR ---
DIRECTOR DATA ARCHITECTURE NOTES Pt IS BACK FROM EGD PROCEDURE. A/O X4. NO SIGNS OF DISTRESS AT THIS TIME. NO COMPLAINTS OF PAIN AT THIS MOMENT. VS ARE 126/83, 98 FAHRENHEIT, 95% O2 ON ROOM AIR, HEART RATE IS 87 BMP. WILL CONTINUE TO MONITOR.
--- NOTE | 2021-08-29 19:30 | NUR ---
OFFICE WORKFORCE PLANNER OPENING NOTE RECEIVED PATIENT IN BED. A/OX4. NO S/S OF APPARENT DISTRESS ON ROOM AIR. NO C/O PAIN BUT DOES FEEL ANXIOUS-- REQUESTING ATIVAN, WILL GIVE. TELE MONITOR READING SR 98. NO FLUIDS RUNNING AT THIS TIME. S/P EGD-- RESUMED ON SOFT DIET-- WILL CONTINUE TO MONITOR. SAFETY IN PLACE. WILL CONTINUE WITH WITH PLAN OF CARE FOR PATIENT.
--- NOTE | 2021-08-29 19:38 | NUR ---
TARIFF EXPERT CLOSING NOTES Pt RESTING IN BED AT THIS TIME. A/OX4. ABLE TO MAKE NEEDS KNOWN. ON ROOM AIR, BREATHING EVEN AND UNLABORED, NO SOB NOTED DURING SHIFT. KODAK MIDLINE INTACT, PATENT AND FLUSHES WELL. ALL NEEDS MET AT THIS TIME. SAFETY MEASURES KEPT IN PLACE: BED IS LOCKED AND IN LOWEST POSITION WITH SR UPX2. CALL LIGHT AND BEDSIDE TABLE WITHIN EASY REACH OF Pt. BEDSIDE COMMODE ALSO WITHIN EASY REACH. WILL ENDORSE TO ONCOMING SHIFT
[2021-08-29] MEDS: LORAZEPAM INJ 2 MG/ML VIAL IV PRN (19:41)
[2021-08-29] MEDS: SUCRALFATE 1 G/10 ML UDC PO SCH ×2 (21:37→22:00)
[2021-08-30] VITALS: BP 134/70
[2021-08-30] MEDS: LORAZEPAM INJ 2 MG/ML VIAL IV PRN ×2 (03:00→21:14)
[2021-08-30 04:00] VITALS: BP 110/54
[2021-08-30] MEDS: HYDROMORPHONE 1 MG/1 ML DISP.SYRIN IV PRN ×2 (06:13→15:00)
[2021-08-30 06:39] LABS: BASOPHILS % (AUTO) 0.3 % (0.0-2.0); EOSINOPHILS % (AUTO) 3.6 % (0.0-6.0); HEMATOCRIT 26 % (33-45); HEMOGLOBIN 8.8 g/dL (11.5-14.8); LYMPHOCYTES # (AUTO) 2.9 K/uL (0.8-4.8); LYMPHOCYTES % (AUTO) 36.7 % (20.0-44.0); MEAN CORPUSCULAR HGB CONC 34 g/dl (31.0-36.0); MEAN CORPUSCULAR VOLUME 84 fL (82-100); MONOCYTES # (AUTO) 1.2 K/uL (0.1-1.30); MONOCYTES % (AUTO) 15.5 % (2.0-12.0); NEUTROPHILS # (AUTO) 3.5 K/uL (1.8-8.9); NEUTROPHILS % (AUTO) 43.9 % (43.0-81.0); PLATELET COUNT (AUTO) 323 K/uL (150-450); RED BLOOD CELL COUNT(AUTO) 3.12 MIL/uL (4.0-5.2); WHITE BLOOD COUNT (AUTO) 7.9 K/uL (4.3-11.0)
--- NOTE | 2021-08-30 07:25 | NUR ---
ANIMAL STICKER OPENING NOTES RECEIVED PT ASLEEP IN BED, EASY TO AROUSE. PT IS A/O X 4. ABLE TO MAKE NEEDS KNOWN. NO S/SX OF DISTRESS NOTED. ON ROOM AIR, TOLERATING WELL. BREATHING IS EVEN AND UNLABORED. NO C/O PAIN AT THIS TIME. IV ACCESS KODAK MIDLINE PATENT AND INTACT. EXTERNAL INSURANCE ASSISTANT PLACED ON PATIENT WITH SR READING IN 70'S. SAFETY MEASURES IN PLACE WITH BED LOCKED AT LOW POSITION AND SIDE RAILS UP X 2. WILL CONTINUE TO MONITOR PATIENT FOR CHANGES IN CONDITION.
--- NOTE | 2021-08-30 07:31 | NUR ---
MS RN NOTE REPORT GIVEN TO FIORDALIZA FOR CONTINUITY OF CARE.
[2021-08-30 07:39] LABS: CALCIUM, SERUM 8.5 mg/dL (8.5-10.1); CREATININE 0.4 mg/dL (0.6-1.3); MAGNESIUM 2.2 mg/dL (1.8-2.4); PHOSPHORUS 4.1 mg/dL (2.5-4.9); POTASSIUM 3.8 mmol/L (3.5-5.1)
[2021-08-30 08:00] VITALS: BP 157/77
[2021-08-30] MEDS: HYDROCODONE/APAP 5/325MG TABLET PO SCH (08:41)
[2021-08-30] MEDS: SUCRALFATE 1 G/10 ML UDC PO SCH ×4 (08:41→21:03)
[2021-08-30] MEDS: PANTOPRAZOLE 40 MG TABLET.DR PO SCH ×2 (08:41→16:59)
[2021-08-30] MEDS: FERROUS SULFATE (325 MG) 325 MG/TAB TABLET PO SCH ×3 (08:42→16:59)
[2021-08-30] MEDS: METOPROLOL TARTRATE 25 MG TABLET PO SCH ×2 (08:42→21:04)
[2021-08-30 11:22] LABS: EOSINOPHILS % (MANUAL) 4 % (0-4); LYMPHOCYTES % (MANUAL) 40 % (16-48); MONOCYTES % (MANUAL) 13 % (0-11.0); NEUTROPHILS % (MANUAL) 43 (42-76)
[2021-08-30 12:00] VITALS: BP 136/67
--- NOTE | 2021-08-30 15:01 | NUR ---
RN NOTE PT C/O BACK PAIN 8/10 LEVEL ADMINISTERED DILAUDID AT THIS TIME. WILL CONT TO MONITOR PATIENT AND REASSESS.
[2021-08-30 16:00] VITALS: BP 143/86
[2021-08-30] MEDS ORDERED: SUCR1ORA4 PO (18:48)
[2021-08-30] MEDS ORDERED: PANT40TA2 PO (18:48)
--- NOTE | 2021-08-30 18:57 | NUR ---
CINDER BLOCK MAKER CLOSING NOTES PT ASLEEP IN BED, EASY TO AROUSE. NO S/SX OF DISTRESS NOTED. ON ROOM AIR, TOLERATING WELL. BREATHING IS EVEN AND UNLABORED. NO C/O PAIN AT THIS TIME. IV ACCESS KODAK MIDLINE PATENT AND INTACT. EXTERNAL AMMUNITION SPECIALIST PLACED ON PATIENT WITH SR READING IN 70'S. SAFETY MEASURES MAINTAINED. NO SIGNIFICANT CHANGE IN CONDITION DURING SHIFT. CALL LIGHT IS WITHIN REACH. WILL ENDORSE CONTINUITY OF CARE TO ONCOMING SHIFT.
--- NOTE | 2021-08-30 19:20 | NUR ---
TELE/RN OPENING NOTE RECEIVED PATIENT RESTING IN BED. AWAKE, ALERT AND ORIENTED X 4. ABLE TO MAKE NEEDS KNOWN. DENIES PAIN AT THIS TIME. CONTINUES ON ROOM AIR WITH NO S/SX OF RESPIRATORY DISTRESS NOTED. IV ACCESS TO LEFT UPPER ARM MIDLINE #18G INTACT, PATENT AND SALINE LOCKED. CONTINUES ON TELE MONITOR WITH CURRENT READING SR. PATIENT TO DISCHARGE IN AM. CALL LIGHT WITHIN REACH. ASPIRATION, FALL AND SAFETY PRECAUTIONS MAINTAINED. WILL CONTINUE TO MONITOR.
[2021-08-30 20:00] VITALS: BP 144/82
[2021-08-30] MEDS: HYDROCODONE/APAP 5/325MG TABLET PO PRN ×2 (21:04→21:14)
[2021-08-31] VITALS: BP 134/68
[2021-08-31 04:00] VITALS: BP 129/71
--- NOTE | 2021-08-31 06:30 | NUR ---
TELE/RN CLOSING NOTE PATIENT CURRENTLY SLEEPING IN BED. ALERT AND ORIENTED X 4. ABLE TO MAKE NEEDS KNOWN. DENIES PAIN AT THIS TIME. CONTINUES ON ROOM AIR WITH NO S/SX OF RESPIRATORY DISTRESS NOTED. IV ACCESS TO LEFT UPPER ARM MIDLINE #18G INTACT, PATENT AND SALINE LOCKED. CONTINUES ON TELE MONITOR WITH CURRENT READING SR. PATIENT TO DISCHARGE THIS AM. CALL LIGHT WITHIN REACH. ASPIRATION, FALL AND SAFETY PRECAUTIONS MAINTAINED. WILL ENDORSE PLAN OF CARE TO ONCOMING SHIFT.
--- NOTE | 2021-08-31 07:30 | NUR ---
TELE/RN OPENING NOTE RECEIVED PATIENT RESTING IN BED. AWAKE, ALERT AND ORIENTED X 4. ABLE TO MAKE NEEDS KNOWN. DENIES PAIN AT THIS TIME. CONTINUES ON ROOM AIR WITH NO S/SX OF RESPIRATORY DISTRESS NOTED. IV ACCESS TO LEFT UPPER ARM MIDLINE #18G INTACT, PATENT AND SALINE LOCKED. CONTINUES ON TELE MONITOR WITH CURRENT READING ST HR 102. CALL LIGHT WITHIN REACH. ASPIRATION, FALL AND SAFETY PRECAUTIONS MAINTAINED. WILL CONTINUE TO MONITOR.
[2021-08-31 08:00] VITALS: BP 139/85
[2021-08-31] MEDS: SUCRALFATE 1 G/10 ML UDC PO SCH (08:48)
[2021-08-31] MEDS: PANTOPRAZOLE 40 MG TABLET.DR PO SCH (08:48)
[2021-08-31 08:49] VITALS: BP 139/85
[2021-08-31] MEDS: METOPROLOL TARTRATE 25 MG TABLET PO SCH (08:49)
[2021-08-31] MEDS: FERROUS SULFATE (325 MG) 325 MG/TAB TABLET PO SCH (08:49)
--- NOTE | 2021-08-31 11:21 | NUR ---
CHILD CUSTODY EVALUATOR NOTES DISCHARGED PATIENT IN STABLE CONDITION. VITAL SIGNS WITHIN NORMAL LIMITS. DISCHARGE AND FOLLOW UP INSTRUCTIONS DISCUSSED WITH PATIENT, PATIENT VERBALIZED UNDERSTANDING. BELONGINGS ACCOUNTED AND SIGNED FOR. IV ACCESS REMOVED. COVERED WITH GAUZE, NO S/SX OF BLEEDING NOTED. WHEELED TO LOBBY SAFELY ACCOMPANIED BY OBDULIO (ELIANA). LEFT UNIT IN STABLE CONDITION. MD AND CHARGE NURSE AWARE OF DISCHARGE.
== END 2021-08-31 13:25 | disposition home or self-care (01) | DRG 368 ==
LOC: ER 11:56 → ICU 15:44 → MED 08-26 12:50 → TELE 08-26 12:59
PROVIDERS: ADMIT Nurse Practitioner Acute Care; ATTEND Nurse Practitioner Acute Care
PROC: 05H633Z Insertion of Infusion Device into Left Subclavian Vein, Percutaneous Approach (ICD-10-PCS; 2021-08-24)
PROC: B547ZZA Ultrasonography of Left Subclavian Vein, Guidance (ICD-10-PCS; 2021-08-24)
PROC: 5A2204Z Restoration of Cardiac Rhythm, Single (ICD-10-PCS; 2021-08-24)
PROC: 30233N1 Transfusion of Nonautologous Red Blood Cells into Peripheral Vein, Percutaneous Approach (ICD-10-PCS; principal; 2021-08-25)
PROC: 0DJ08ZZ Inspection of Upper Intestinal Tract, Via Natural or Artificial Opening Endoscopic (ICD-10-PCS; 2021-08-29)
DX: K21.01 Gastro-esophageal reflux disease with esophagitis, with bleeding (principal); I21.A1 Myocardial infarction type 2; E87.1 Hypo-osmolality and hyponatremia; I47.1 Supraventricular tachycardia; D62 Acute posthemorrhagic anemia; K76.0 Fatty (change of) liver, not elsewhere classified; E86.9 Volume depletion, unspecified; I10 Essential (primary) hypertension; K44.9 Diaphragmatic hernia without obstruction or gangrene; D50.0 Iron deficiency anemia secondary to blood loss (chronic); E86.1 Hypovolemia; M89.9 Disorder of bone, unspecified; K21.9 Gastro-esophageal reflux disease without esophagitis; R13.10 Dysphagia, unspecified; G89.29 Other chronic pain; F41.9 Anxiety disorder, unspecified; E34.3 Short stature due to endocrine disorder; K57.30 Diverticulosis of large intestine without perforation or abscess without bleeding; F10.10 Alcohol abuse, uncomplicated; Y90.3 Blood alcohol level of 60-79 mg/100 ml; Z20.822 Contact with and (suspected) exposure to COVID-19; I95.9 Hypotension, unspecified; E83.9 Disorder of mineral metabolism, unspecified; M48.00 Spinal stenosis, site unspecified; I35.1 Nonrheumatic aortic (valve) insufficiency
CPT/HCPCS: 36415; 71045-TC; 80048-TC; 80053-TC; 80076-TC; 81001; 82728-TC; 83540-TC; 83690-TC; 83735-TC; 84100-TC; 84484-TC; 85025-TC; 85027-TC; 85610-TC; 85730-TC; 86850-TC; 87040-TC; 87081-TC; 93307-TC; C9113; C9803; G0378; G0480; J0153; J1170; J2060; J2270; J2354; J2405; J2543; J2704; J3490; J7030; J7050; J7060; P9016; Q2036

== ENCOUNTER 2021-10-18 10:46 | Inpatient (IN) | payer BC, MEDICARE ==
[~2021-10-18] VITALS: Ht 121.9 cm; Wt 47.6 kg
[~2021-10-18 10:46] MED LIST changes: +HYDR-4275 PO; -LORA-259 PO; +PANT40TA2 PO; +SUCR1ORA4 PO
[2021-10-18] MEDS ORDERED: IV NS 0.9% 1,000 ML BAG IV ONE (11:00)
[2021-10-18] MEDS ORDERED: ONDANSETRON HCL/PF 4 MG/2 ML VIAL IVP ONE ×2 (11:00→13:00)
[2021-10-18] MEDS ORDERED: PANTOPRAZOLE 40 MG VIAL IV ONE (11:00)
--- NOTE | 2021-10-18 11:00 | NUR ---
BIBRA 89 FROM HOME AOX4 C/O NAUSEA/ VOMITING AND CHEST/EPIGASTRIC PAIN FOR 2 DAYS. DENIES FEVERS OR SOB. PT CHANGED INTO GOWN AND HOOKED UP TO COKE BURNER.
--- NOTE | 2021-10-18 11:03 | NUR ---
dr wong at bedside for eval.
--- NOTE | 2021-10-18 11:10 | NUR ---
IV LINE ESTABLISHED. BLOOD OBTAINED AND SENT TO LAB
[2021-10-18] MEDS ORDERED: ONDANSETRON HCL/PF 4 MG/2 ML VIAL ONE ×3 (11:15→14:44)
[2021-10-18] MEDS ORDERED: PANTOPRAZOLE 40 MG VIAL ONE (11:15)
--- NOTE | 2021-10-18 11:15 | NUR ---
SINGH PETERS AT BEDSIDE FOR EKG
[2021-10-18 11:34] LABS: BASOPHILS # (AUTO) 0.1 K/uL (0.0-0.2); BASOPHILS % (AUTO) 0.4 % (0.0-2.0); HEMATOCRIT 36 % (33-45); HEMOGLOBIN 11.6 g/dL (11.5-14.8); LYMPHOCYTES # (AUTO) 1.4 K/uL (0.8-4.8); LYMPHOCYTES % (AUTO) 6.4 % (20.0-44.0); MEAN CORPUSCULAR HGB CONC 33 g/dl (31.0-36.0); MEAN CORPUSCULAR VOLUME 78 fL (82-100); MONOCYTES % (AUTO) 4.4 % (2.0-12.0); NEUTROPHILS # (AUTO) 19.3 K/uL (1.8-8.9); NEUTROPHILS % (AUTO) 88.8 % (43.0-81.0); PLATELET COUNT (AUTO) 616 K/uL (150-450); RED BLOOD CELL COUNT(AUTO) 4.55 MIL/uL (4.0-5.2); WHITE BLOOD COUNT (AUTO) 21.7 K/uL (4.3-11.0)
[2021-10-18 11:47] LABS: CALCIUM, SERUM 9.7 mg/dL (8.5-10.1); CREATININE 0.6 mg/dL (0.6-1.3); POTASSIUM 3.8 mmol/L (3.5-5.1)
[2021-10-18 11:54] LABS: ALBUMIN 3.9 g/dL (3.4-5.0); BILIRUBIN,DIRECT 0.2 mg/dL (0.0-0.2); BILIRUBIN,TOTAL 0.5 mg/dL (0.2-1.0); TOTAL PROTEIN, SERUM 8.2 g/dL (6.4-8.2)
[2021-10-18] MEDS ORDERED: IV NS 0.9% 250 ML IV ONE (12:11)
[2021-10-18] MEDS ORDERED: IOHEXOL-300 100 ML VIAL IV ONE (12:11)
--- NOTE | 2021-10-18 12:21 | NUR ---
URINE COLLECTED AND SENT TO LAB
[2021-10-18] MEDS ORDERED: MORPHINE SULFATE INJ 2 MG/ML DISP.SYRIN IV ONE (13:00)
[2021-10-18] MEDS ORDERED: PIPERACILLIN /TAZOBACTAM 3.375 G in IV D5W 50 ML IV ONE (13:00)
--- NOTE | 2021-10-18 13:10 | NUR ---
CALLED NURSING EXECUTIVE COACH FOR M/S BED.
[2021-10-18] MEDS ORDERED: MORPHINE SULFATE INJ 4 MG/ML DISP.SYRIN ONE ×2 (13:25→18:44)
[2021-10-18] MEDS ORDERED: MAG HYDROX/AL HYDROX/SIMETH 30 ML UDC PO PRN (13:30)
[2021-10-18] MEDS: PANTOPRAZOLE 40 MG VIAL IV SCH (13:30)
[2021-10-18] MEDS ORDERED: LORAZEPAM INJ 2 MG/ML VIAL IV PRN (13:30)
[2021-10-18] MEDS ORDERED: Z GUARD REMEDY 4 OZ OINT TP PRN (13:30)
[2021-10-18] MEDS ORDERED: ONDANSETRON HCL/PF 4 MG/2 ML VIAL IVP PRN (13:30)
[2021-10-18] MEDS ORDERED: Thiamine 100 MG in IV D5W 50 ML IV SCH (14:00)
--- NOTE | 2021-10-18 14:02 | NUR ---
ordered iv protonix not given. pprotonix given earlier.
--- NOTE | 2021-10-18 14:32 | NUR ---
BEDPAN PROVIDED REQUESTED
[2021-10-18 14:40] LABS: BILIRUBIN,URINE NEGATIVE (NEGATIVE); COLOR,URINE YELLOW (YELLOW); LEUKOCYTE ESTERASE ,URINE TRACE (NEGATIVE); NITRITE, URINE NEGATIVE (NEGATIVE); PROTEIN,URINE NEGATIVE (NEGATIVE); UGLUCOSE NEGATIVE (NEGATIVE); UROBILINOGEN,URINE 0.2 EU/dL (0.2)
[2021-10-18] MEDS ORDERED: LORAZEPAM INJ 2 MG/ML VIAL ONE (14:52)
[2021-10-18] MEDS ORDERED: ENOXAPARIN SODIUM 30 MG/0.3 ML DISP.SYRIN SQ SCH (15:00)
--- NOTE | 2021-10-18 15:00 | NUR ---
PT C/O NAUSEA NOT RELEIVED BY ZOFRAN. MADE AWARE
[2021-10-18] MEDS: IV D5/ 0.9% NACL 1,000 ML IV PRN ×2 (15:04→23:17)
[2021-10-18] MEDS ORDERED: ENOXAPARIN SODIUM 30 MG/0.3 ML DISP.SYRIN ONE (15:10)
[2021-10-18 15:32] LABS: BACTERIA,URINE 2+ /HPF (None Seen)
--- NOTE | 2021-10-18 18:19 | NUR ---
PT C/O HEAD AND BACK PAIN, PAIN 7/10, REQUESTING PAIN MEDS. MD MADE AWARE
[2021-10-18] MEDS: PIPERACILLIN /TAZOBACTAM 3.375 G in IV D5W 50 ML IV SCH ×2 (18:22→23:17)
--- NOTE | 2021-10-18 18:42 | NUR ---
PT C/O BACK AND HEAD PAIN 04/17
--- NOTE | 2021-10-18 19:59 | NUR ---
RESTING IN BED. NO C/O PAIN. RAC INFUSING D5. INFORMED WE ARE STILL WAITING FOR A BED TO BE ASSIGNED.
--- NOTE | 2021-10-18 20:26 | NUR ---
ROOM 309-2 MS
--- NOTE | 2021-10-18 20:44 | NUR ---
REPORT GIVEN TO HOWARD NELSON.
--- NOTE | 2021-10-18 22:00 | NUR ---
PATIENT TRANSFERED TO BED 309-2 WITH ACLS PROTOCOL. WITH ALL BELONGINGS. VSS.
--- NOTE | 2021-10-18 22:35 | NUR ---
ADMISSION NOTE RECEIVED PT VIA DAREK @1895. AOx4, ABLE TO MAKE NEEDS KNOWN. ON NC 2LPM AND TOLERATING WELL. NO SOB NOTED. NO S/SX OF RESPIRATORY DISTRESS NOTED. IV ACCESS IN AC #20 RUNNING D5NS @100 ML/HR. SAFETY PRECAUTIONS IN PLACE: BED IN LOWEST, LOCKED POSITION, SIDERAILS UPx2, AND BRAKES ON. TABLE AND CALL LIGHT WITHIN REACH. WILL CONTINUE TO MONITOR.
[2021-10-18] MEDS ORDERED: PIPERACILLIN /TAZOBACTAM 3.375 G VIAL IV ONE (23:10)
[2021-10-18] MEDS: MORPHINE SULFATE INJ 2 MG/ML DISP.SYRIN IV PRN (23:18)
--- NOTE | 2021-10-18 23:19 | NUR ---
ADMINISTERED MORPHINE PER MD ORDER. VS WNL. WILL CONTINUE TO MONITOR.
[2021-10-19] MEDS ORDERED: PIPERACILLIN /TAZOBACTAM 3.375 G VIAL IV ONE (05:30)
[2021-10-19] MEDS: PIPERACILLIN /TAZOBACTAM 3.375 G in IV D5W 50 ML IV SCH ×2 (05:31→12:47)
--- NOTE | 2021-10-19 06:43 | NUR ---
RN CLOSING NOTES PT IN BED, ASLEEP, AWAKENS TO VERBAL STIMULI. AOx4, ABLE TO MAKE NEEDS KNOWN. ON NC 2LPM AND TOLERATING WELL. NO SOB NOTED. NO S/SX OF RESPIRATORY DISTRESS NOTED. IV ACCESS IN LAC #20 RUNNING D5NS @100 ML/HR. ALL NEEDS MET. PT KEPT CLEAN AND DRY. SAFETY PRECAUTIONS IN PLACE: BED IN LOWEST, LOCKED POSITION, SIDERAILS UPx2, AND BRAKES ON. TABLE AND CALL LIGHT WITHIN REACH. WILL ENDORSE TO ONCOMING SHIFT FOR THADDEUS.
[2021-10-19 06:45] LABS: BASOPHILS # (AUTO) 0.1 K/uL (0.0-0.2); BASOPHILS % (AUTO) 0.6 % (0.0-2.0); EOSINOPHILS % (AUTO) 0.1 % (0.0-6.0); HEMATOCRIT 26 % (33-45); HEMOGLOBIN 8.4 g/dL (11.5-14.8); LYMPHOCYTES # (AUTO) 1.9 K/uL (0.8-4.8); LYMPHOCYTES % (AUTO) 16.9 % (20.0-44.0); MEAN CORPUSCULAR HGB CONC 33 g/dl (31.0-36.0); MEAN CORPUSCULAR VOLUME 79 fL (82-100); MONOCYTES # (AUTO) 1.3 K/uL (0.1-1.30); MONOCYTES % (AUTO) 11.7 % (2.0-12.0); NEUTROPHILS # (AUTO) 7.9 K/uL (1.8-8.9); NEUTROPHILS % (AUTO) 70.7 % (43.0-81.0); PLATELET COUNT (AUTO) 400 K/uL (150-450); RED BLOOD CELL COUNT(AUTO) 3.24 MIL/uL (4.0-5.2); WHITE BLOOD COUNT (AUTO) 11.2 K/uL (4.3-11.0)
--- NOTE | 2021-10-19 07:15 | NUR ---
RN-NOTES RECEIVED PATIENT LYING IN BED AWAKE,ALERT X4 WITH ONGOING IV FLUID OF D5NS @ 100ML/HR. INFUSING WELL WELL TOLERATED. NO ACUTE DISTRESS NOTED. PATIENT ABLE TO AMBULATE IN THE REST ROOM WITH STEADY GAIT.
[2021-10-19 07:49] LABS: CALCIUM, SERUM 8.2 mg/dL (8.5-10.1); CREATININE 0.5 mg/dL (0.6-1.3); MAGNESIUM 2.1 mg/dL (1.8-2.4); PHOSPHORUS 3.4 mg/dL (2.5-4.9); POTASSIUM 3.9 mmol/L (3.5-5.1)
[2021-10-19 08:36] VITALS: BP 132/82
[2021-10-19 08:55] LABS: THYROID STIMULATING HORMONE 0.847 uIU/mL (0.358-3.74)
[2021-10-19] MEDS: PANTOPRAZOLE 40 MG VIAL IV SCH (09:00)
[2021-10-19] MEDS: MORPHINE SULFATE INJ 2 MG/ML DISP.SYRIN IV PRN (09:03)
[2021-10-19] MEDS ORDERED: FOLIC ACID 1 MG TABLET PO SCH (11:00)
[2021-10-19] MEDS ORDERED: CEPH500C2 PO (11:15)
[2021-10-19] MEDS ORDERED: THIAMINE HCL 100 MG TABLET PO SCH (11:27)
[2021-10-19] MEDS ORDERED: SUCRALFATE 1 G TABLET PO SCH (12:00)
--- NOTE | 2021-10-19 15:22 | NUR ---
RN-DISCHARGE NOTES NAOMI MAR CLEARED PATIENT FOR DISCHARGE. PATIENT WAS DISCHARGE TO HOME, INSTRUCTED PATIENT TO F/U WITH HER BUSINESS ANALYTICS SPECIALIST AND CALL 911 OR GO TO THE NEAREST EMERGENCY FACILITY IN CASE OF EMERGENCY. PATIENT VERBALIZED UNDERSTANDING. PATIENT LEFT THE UNIT IN STABLE CONDITION A/O X4 AMBULATORY STEADY GAIT. PATIENT WAS WHEELED IN THE LOBBY BY [facility] STAFF WITH ALL HER BELONGINGS. PATIENT WAS AIRPORT GUIDE BY JEANIE ( COUSIN) VIA PRIVATE CAR.
== END 2021-10-19 15:53 | disposition home or self-care (01) | DRG 391 ==
LOC: ER 10:50 → TRANSITION 13:49 → MED 21:36
PROVIDERS: ADMIT Nurse Practitioner Acute Care; ATTEND Nurse Practitioner Acute Care
DX: K21.00 Gastro-esophageal reflux disease with esophagitis, without bleeding (principal); N17.0 Acute kidney failure with tubular necrosis; N39.0 Urinary tract infection, site not specified; F10.10 Alcohol abuse, uncomplicated; D72.829 Elevated white blood cell count, unspecified; K57.30 Diverticulosis of large intestine without perforation or abscess without bleeding; K76.0 Fatty (change of) liver, not elsewhere classified; Z20.822 Contact with and (suspected) exposure to COVID-19; Y90.6 Blood alcohol level of 120-199 mg/100 ml; F32.A Depression, unspecified; G89.29 Other chronic pain; M48.00 Spinal stenosis, site unspecified; R13.10 Dysphagia, unspecified; M19.90 Unspecified osteoarthritis, unspecified site; E34.3 Short stature due to endocrine disorder; K44.9 Diaphragmatic hernia without obstruction or gangrene; I25.2 Old myocardial infarction
CPT/HCPCS: 36415; 71045-TC; 80048-TC; 80076-TC; 81001; 83690-TC; 83735-TC; 84100-TC; 84443-TC; 85025-TC; 87081-TC; 87086-TC; C9113; G0378; G0480; J1650; J2060; J2270; J2405; J2543; J3411; J7030; J7042; J7050; J7060; J7070; Q9967

== ENCOUNTER 2022-04-24 14:12 | Emergency (ER) | payer BC, MEDICARE ==
[~2022-04-24] VITALS: Ht 121.9 cm; Wt 47.6 kg
[~2022-04-24 14:12] MED LIST changes: +CEPH500C2 PO
--- NOTE | 2022-04-24 14:49 | NUR ---
[id number] HOME C/O NAUSEA AND VOMITING, ADMITS TO DRINKING WINE. PLACED ON BED, AAOX4, BREATHING EVEN AND UNLABORED SATURATING 98%RA.
[2022-04-24] MEDS ORDERED: IV NS 0.9% 1,000 ML BAG IV ONE (16:00)
[2022-04-24] MEDS ORDERED: PANTOPRAZOLE 40 MG VIAL IV ONE (16:00)
[2022-04-24] MEDS ORDERED: ONDANSETRON HCL/PF - ER 4 MG/2 ML VIAL IV ONE (16:00)
--- NOTE | 2022-04-24 16:15 | NUR ---
SHINGLE PACKER AT BED SIDE
--- NOTE | 2022-04-24 16:25 | NUR ---
PATIENT TAKEN TO CT VIA DAREK
[2022-04-24] MEDS ORDERED: ONDANSETRON HCL/PF 4 MG/2 ML VIAL ONE (16:34)
[2022-04-24] MEDS ORDERED: PANTOPRAZOLE 40 MG VIAL ONE (16:34)
[2022-04-24 17:01] LABS: BASOPHILS # (AUTO) 0.1 K/uL (0.0-0.2); BASOPHILS % (AUTO) 0.3 % (0.0-2.0); HEMATOCRIT 38 % (33-45); HEMOGLOBIN 12.1 g/dL (11.5-14.8); LYMPHOCYTES # (AUTO) 2.3 K/uL (0.8-4.8); LYMPHOCYTES % (AUTO) 11.3 % (20.0-44.0); MEAN CORPUSCULAR HGB CONC 32 g/dl (31.0-36.0); MEAN CORPUSCULAR VOLUME 77 fL (82-100); MONOCYTES # (AUTO) 1.2 K/uL (0.1-1.30); MONOCYTES % (AUTO) 6.1 % (2.0-12.0); NEUTROPHILS # (AUTO) 16.7 K/uL (1.8-8.9); NEUTROPHILS % (AUTO) 82.3 % (43.0-81.0); PLATELET COUNT (AUTO) 437 K/uL (150-450); RED BLOOD CELL COUNT(AUTO) 4.96 MIL/uL (4.0-5.2); WHITE BLOOD COUNT (AUTO) 20.3 K/uL (4.3-11.0)
[2022-04-24 17:08] LABS: CALCIUM, SERUM 8.6 mg/dL (8.5-10.1); CREATININE 0.4 mg/dL (0.6-1.3); POTASSIUM 3.3 mmol/L (3.5-5.1)
[2022-04-24 17:12] LABS: ALBUMIN 3.8 g/dL (3.4-5.0); BILIRUBIN,DIRECT 0.2 mg/dL (0.0-0.2); BILIRUBIN,TOTAL 0.6 mg/dL (0.2-1.0)
[2022-04-24] MEDS ORDERED: KETOROLAC TROMETHAMINE INJ 30 MG/ML VIAL IV ONE (18:00)
[2022-04-24] MEDS ORDERED: KETOROLAC TROMETHAMINE 15 MG/ML VIAL ONE (18:01)
[2022-04-24 18:15] LABS: BILIRUBIN,URINE NEGATIVE (NEGATIVE); COLOR,URINE YELLOW (YELLOW); LEUKOCYTE ESTERASE ,URINE NEGATIVE (NEGATIVE); NITRITE, URINE NEGATIVE (NEGATIVE); UGLUCOSE NEGATIVE (NEGATIVE); UROBILINOGEN,URINE 0.2 EU/dL (0.2)
[2022-04-24 18:23] LABS: PROTEIN,URINE NEGATIVE (NEGATIVE)
[2022-04-24 21:28] VITALS: BP 112/69
--- NOTE | 2022-04-24 21:28 | NUR ---
Patient discharged to home in stable condition. Written and verbal after care instructions given. Patient verbalizes understanding of instruction.
== END 2022-04-24 21:29 | disposition home or self-care (01) ==
LOC: ER 14:35
DX: F10.10 Alcohol abuse, uncomplicated (principal); R10.13 Epigastric pain; R51.9 Headache, unspecified; I10 Essential (primary) hypertension; M19.90 Unspecified osteoarthritis, unspecified site; G89.29 Other chronic pain; Z98.890 Other specified postprocedural states; Z88.1 Allergy status to other antibiotic agents; Z79.899 Other long term (current) drug therapy; Y90.9 Presence of alcohol in blood, level not specified
CPT/HCPCS: 99285; 96374; 70450; 96375; 96361; 85025; 80048; 83690; 80076; 81003; 36415; J2405 ×2; J7030; C9113; J1885

== ENCOUNTER 2022-05-01 11:49 | Emergency (ER) | payer BC, MEDICARE ==
[~2022-05-01] VITALS: Ht 121.9 cm; Wt 46.7 kg
--- NOTE | 2022-05-01 12:00 | NUR ---
MEGAN 59 FROM HOME, PT STATED DRINKING ALCOHOL IN AM. TO ER BED 12.
[2022-05-01] MEDS ORDERED: FAMOTIDINE/PF INJ 20 MG/2 ML VIAL IV ONE ×2 (13:00→13:10)
[2022-05-01] MEDS ORDERED: ONDANSETRON HCL/PF 4 MG/2 ML VIAL IVP ONE (13:00)
[2022-05-01] MEDS ORDERED: ONDANSETRON HCL/PF 4 MG/2 ML VIAL ONE (13:10)
[2022-05-01 13:41] LABS: BASOPHILS # (AUTO) 0.1 K/uL (0.0-0.2); BASOPHILS % (AUTO) 0.7 % (0.0-2.0); EOSINOPHILS % (AUTO) 0.1 % (0.0-6.0); HEMATOCRIT 37 % (33-45); HEMOGLOBIN 12.2 g/dL (11.5-14.8); LYMPHOCYTES # (AUTO) 2.1 K/uL (0.8-4.8); LYMPHOCYTES % (AUTO) 14.7 % (20.0-44.0); MEAN CORPUSCULAR HGB CONC 33 g/dl (31.0-36.0); MEAN CORPUSCULAR VOLUME 78 fL (82-100); MONOCYTES # (AUTO) 0.6 K/uL (0.1-1.30); MONOCYTES % (AUTO) 4.2 % (2.0-12.0); NEUTROPHILS # (AUTO) 11.3 K/uL (1.8-8.9); NEUTROPHILS % (AUTO) 80.3 % (43.0-81.0); PLATELET COUNT (AUTO) 466 K/uL (150-450); RED BLOOD CELL COUNT(AUTO) 4.77 MIL/uL (4.0-5.2); WHITE BLOOD COUNT (AUTO) 14.1 K/uL (4.3-11.0)
[2022-05-01 14:00] LABS: CALCIUM, SERUM 8.3 mg/dL (8.5-10.1); CREATININE 0.3 mg/dL (0.6-1.3); POTASSIUM 3.5 mmol/L (3.5-5.1)
[2022-05-01 14:06] LABS: ALBUMIN 3.8 g/dL (3.4-5.0); BILIRUBIN,DIRECT 0.1 mg/dL (0.0-0.2); BILIRUBIN,TOTAL 0.4 mg/dL (0.2-1.0); TOTAL PROTEIN, SERUM 7.8 g/dL (6.4-8.2)
[2022-05-01 15:11] LABS: BILIRUBIN,URINE NEGATIVE (NEGATIVE); COLOR,URINE YELLOW (YELLOW); LEUKOCYTE ESTERASE ,URINE NEGATIVE (NEGATIVE); NITRITE, URINE NEGATIVE (NEGATIVE); PH,URINE 5.5 (5.0-8.0); PROTEIN,URINE NEGATIVE (NEGATIVE); UGLUCOSE NEGATIVE (NEGATIVE); UROBILINOGEN,URINE 0.2 EU/dL (0.2)
--- NOTE | 2022-05-01 16:00 | NUR ---
PT STATES FEELING MUCH BETTER AND WANT TO BE DISCHARGE. DR RODRIGUEZ AWARE.
--- NOTE | 2022-05-01 16:23 | NUR ---
APA SAND OPERATOR TIME IS SET FOR 1700
[2022-05-01 16:56] LABS: BACTERIA,URINE None seen /HPF (None Seen); RBC,URINE 0-2 /HPF (0-2); SQUAMOUS EPITHELIAL CELL,UR 0-2 /HPF (None Seen); WBC,URINE 0-2 /HPF (0-3)
--- NOTE | 2022-05-01 18:02 | NUR ---
DISCHARGED VIA AMBULANCE IN STABLE CONDITION. IV removed. Catheter intact and site benign. Pressure and 4x4 applied to site. No bleeding noted.
[2022-05-01 18:04] VITALS: BP 122/76
== END 2022-05-01 18:05 | disposition home or self-care (01) ==
LOC: ER 11:51
DX: F10.129 Alcohol abuse with intoxication, unspecified (principal); R11.10 Vomiting, unspecified; I10 Essential (primary) hypertension; M19.90 Unspecified osteoarthritis, unspecified site; G89.29 Other chronic pain; Z98.890 Other specified postprocedural states; Z88.1 Allergy status to other antibiotic agents; Z79.899 Other long term (current) drug therapy; Y90.9 Presence of alcohol in blood, level not specified
CPT/HCPCS: 99284; 96374; 96375; 85025; 80048; 83690; 80076; 81001; 36415; 80320; J3490; J2405; G0480; J7030

== ENCOUNTER 2022-11-12 14:55 | Inpatient (IN) | payer BC, MEDICARE ==
[~2022-11-12] VITALS: Ht 121.9 cm; Wt 52.2 kg
[2022-11-12 16:10] LABS: EOSINOPHILS % (AUTO) 0.7 % (0.0-6.0); HEMATOCRIT 31 % (33-45); HEMOGLOBIN 10.4 g/dL (11.5-14.8); LYMPHOCYTES # (AUTO) 3.7 K/uL (0.8-4.8); LYMPHOCYTES % (AUTO) 29.1 % (20.0-44.0); MEAN CORPUSCULAR HGB CONC 33 g/dl (31.0-36.0); MEAN CORPUSCULAR VOLUME 85 fL (82-100); MONOCYTES # (AUTO) 1.4 K/uL (0.1-1.30); MONOCYTES % (AUTO) 11.5 % (2.0-12.0); NEUTROPHILS # (AUTO) 7.4 K/uL (1.8-8.9); NEUTROPHILS % (AUTO) 58.7 % (43.0-81.0); PLATELET COUNT (AUTO) 388 K/uL (150-450); RED BLOOD CELL COUNT(AUTO) 3.71 MIL/uL (4.0-5.2); WHITE BLOOD COUNT (AUTO) 12.6 K/uL (4.3-11.0)
[2022-11-12 16:11] LABS: ALANINE AMINOTRANSFERASE 31 U/L (12-78); ALBUMIN 3.4 g/dL (3.4-5.0); ALKALINE PHOSPHATASE 68 U/L (46-116); ASPARTATE AMINOTRANSFERASE 20 U/L (15-37); BILIRUBIN,DIRECT 0.1 mg/dL (0.0-0.2); BILIRUBIN,TOTAL 0.3 mg/dL (0.2-1.0); CALCIUM, SERUM 9.1 mg/dL (8.5-10.1); CARBON DIOXIDE 39 mmol/L (21-32); CHLORIDE 89 mmol/L (98-107); CREATININE 0.5 mg/dL (0.6-1.3); GLUCOSE 115 mg/dL (74-106); TOTAL PROTEIN, SERUM 6.7 g/dL (6.4-8.2); UREA NITROGEN, BLOOD 14 mg/dL (7-18)
[2022-11-12 16:13] LABS: SODIUM SERUM 131 mmol/L (136-145)
[2022-11-12 16:15] LABS: POTASSIUM 2.6 mmol/L (3.5-5.1)
[2022-11-12 16:25] LABS: BILIRUBIN,URINE NEGATIVE (NEGATIVE); COLOR,URINE YELLOW (YELLOW); LEUKOCYTE ESTERASE ,URINE 1+ (NEGATIVE); NITRITE, URINE NEGATIVE (NEGATIVE); PROTEIN,URINE NEGATIVE (NEGATIVE); UGLUCOSE NEGATIVE (NEGATIVE); UROBILINOGEN,URINE 0.2 EU/dL (0.2)
[2022-11-12] MEDS ORDERED: LORAZEPAM INJ 2 MG/ML VIAL IV ONE (16:30)
[2022-11-12 16:39] LABS: RBC,URINE NONE SEEN /HPF (0-2)
[2022-11-12 16:40] LABS: BACTERIA,URINE Few /HPF (None Seen); SQUAMOUS EPITHELIAL CELL,UR Few /HPF (None Seen)
[2022-11-12] MEDS ORDERED: POTASSIUM CL. PREMIX PERIPHER. 50 ML ONE (16:44)
[2022-11-12] MEDS: POTASSIUM CL. PREMIX PERIPHER. 50 ML IV SCH ×7 (16:55→23:29)
[2022-11-12] MEDS ORDERED: LORAZEPAM INJ 2 MG/ML VIAL ONE (16:59)
[2022-11-12] MEDS ORDERED: IV NS 0.9% 1,000 ML IV ONE (17:00)
[2022-11-12] MEDS ORDERED: BIOT10004 PO (17:16)
[2022-11-12] MEDS ORDERED: OMEG1CAP PO (17:16)
[2022-11-12] MEDS ORDERED: LISI10TA29 PO (17:16)
[2022-11-12] MEDS ORDERED: PANT40TA2 PO (17:16)
[2022-11-12] MEDS ORDERED: VITA1TAB56 PO (17:16)
[2022-11-12] MEDS ORDERED: PSYL0.5211 PO (17:16)
[2022-11-12] MEDS ORDERED: MAGN400T26 PO (17:16)
[2022-11-12] MEDS ORDERED: FAMO-131 PO (17:16)
[2022-11-12] MEDS ORDERED: CHOL100043 PO (17:16)
[2022-11-12] MEDS ORDERED: MULT-1168 PO (17:16)
[2022-11-12] MEDS ORDERED: ENOXAPARIN SODIUM 40 MG/0.4 ML DISP.SYRIN SQ SCH (18:00)
[2022-11-12] MEDS ORDERED: POTASSIUM CHLORIDE 20 MEQ POWDER PACKET PO ONE ×2 (18:00→22:00)
[2022-11-12] MEDS ORDERED: Z GUARD REMEDY 4 OZ OINT TP PRN (18:00)
[2022-11-12] MEDS ORDERED: MAGNESIUM HYDROXIDE 30 ML UDC PO PRN (18:00)
[2022-11-12] MEDS ORDERED: CEFTRIAXONE 1 G in IV D5W 50 ML IV SCH (18:00)
[2022-11-12] MEDS ORDERED: ONDANSETRON HCL/PF 4 MG/2 ML VIAL IVP PRN (18:00)
[2022-11-12] MEDS ORDERED: HYDROCODONE/APAP 5/325MG TABLET PO PRN (18:00)
[2022-11-12] MEDS ORDERED: ACETAMINOPHEN 325 MG TABLET PO PRN (18:00)
[2022-11-12 20:55] VITALS: BP 115/64
[2022-11-12] MEDS: CEFTRIAXONE 1 G in IV D5W 50 ML IV SCH (22:13)
[2022-11-12] MEDS: ENOXAPARIN SODIUM 40 MG/0.4 ML DISP.SYRIN SQ SCH (22:15)
[2022-11-13] VITALS: BP 136/67
[2022-11-13] MEDS: POTASSIUM CL. PREMIX PERIPHER. 50 ML IV SCH (00:52)
[2022-11-13 04:00] VITALS: BP 151/85
[2022-11-13 06:53] LABS: BASOPHILS % (AUTO) 0.1 % (0.0-2.0); EOSINOPHILS % (AUTO) 1.4 % (0.0-6.0); HEMATOCRIT 30 % (33-45); HEMOGLOBIN 10.2 g/dL (11.5-14.8); LYMPHOCYTES # (AUTO) 4.4 K/uL (0.8-4.8); LYMPHOCYTES % (AUTO) 41.5 % (20.0-44.0); MEAN CORPUSCULAR HGB CONC 33 g/dl (31.0-36.0); MEAN CORPUSCULAR VOLUME 86 fL (82-100); MONOCYTES # (AUTO) 1.2 K/uL (0.1-1.30); MONOCYTES % (AUTO) 11.3 % (2.0-12.0); NEUTROPHILS # (AUTO) 4.8 K/uL (1.8-8.9); NEUTROPHILS % (AUTO) 45.7 % (43.0-81.0); PLATELET COUNT (AUTO) 357 K/uL (150-450); RED BLOOD CELL COUNT(AUTO) 3.53 MIL/uL (4.0-5.2); WHITE BLOOD COUNT (AUTO) 10.5 K/uL (4.3-11.0)
[2022-11-13 07:13] LABS: CALCIUM, SERUM 8.3 mg/dL (8.5-10.1); CREATININE 0.5 mg/dL (0.6-1.3); MAGNESIUM 2.1 mg/dL (1.8-2.4); PHOSPHORUS 2.9 mg/dL (2.5-4.9); POTASSIUM 4.5 mmol/L (3.5-5.1)
[2022-11-13 07:22] LABS: THYROID STIMULATING HORMONE 1.036 uIU/mL (0.358-3.74)
[2022-11-13] MEDS ORDERED: PANTOPRAZOLE 40 MG TABLET.DR PO SCH (07:30)
[2022-11-13 08:00] VITALS: BP 137/84
[2022-11-13] MEDS ORDERED: Medication Not On Formulary EA (Omega-3 Fatty Acids/Fish Oil (Fish Oil 1,000 Mg Capsule) PO SCH (09:00)
[2022-11-13] MEDS ORDERED: Medication Not On Formulary EA (Biotin 1,000 MCG) PO SCH (09:00)
[2022-11-13] MEDS: LISINOPRIL (10MG) 10 MG TABLET PO SCH (09:54)
[2022-11-13] MEDS: PSYLLIUM SEED 1 PKT PACKET PO SCH (10:03)
[2022-11-13] MEDS: CHOLECALCIFEROL 1,000 UNIT TABLET (VIT D3) PO SCH (10:03)
[2022-11-13 12:00] VITALS: BP 142/71
[2022-11-13] MEDS ORDERED: SOD FERRIC GLUC 125 MG in IV NS 0.9% 100 ML IV SCH (14:00)
[2022-11-13 16:00] VITALS: BP 133/70
[2022-11-13] MEDS: FAMOTIDINE (20 MG) 20 MG TABLET PO SCH (18:20)
[2022-11-13 20:00] VITALS: BP 130/71
[2022-11-13] MEDS: ENOXAPARIN SODIUM 40 MG/0.4 ML DISP.SYRIN SQ SCH (21:19)
[2022-11-13] MEDS ORDERED: TEMAZEPAM 7.5 MG CAPSULE PO PRN (21:30)
[2022-11-13] MEDS: CEFTRIAXONE 1 G in IV D5W 50 ML IV SCH (23:01)
[2022-11-14] VITALS: BP 125/75
[2022-11-14 04:00] VITALS: BP 145/82
[2022-11-14 06:42] LABS: BASOPHILS % (AUTO) 0.3 % (0.0-2.0); EOSINOPHILS % (AUTO) 2.2 % (0.0-6.0); HEMATOCRIT 29 % (33-45); HEMOGLOBIN 9.8 g/dL (11.5-14.8); LYMPHOCYTES # (AUTO) 4.7 K/uL (0.8-4.8); MEAN CORPUSCULAR HGB CONC 33 g/dl (31.0-36.0); MEAN CORPUSCULAR VOLUME 86 fL (82-100); MONOCYTES # (AUTO) 1.4 K/uL (0.1-1.30); MONOCYTES % (AUTO) 12.8 % (2.0-12.0); NEUTROPHILS # (AUTO) 4.4 K/uL (1.8-8.9); NEUTROPHILS % (AUTO) 40.7 % (43.0-81.0); PLATELET COUNT (AUTO) 366 K/uL (150-450); RED BLOOD CELL COUNT(AUTO) 3.44 MIL/uL (4.0-5.2); WHITE BLOOD COUNT (AUTO) 10.8 K/uL (4.3-11.0)
[2022-11-14] MEDS ORDERED: PANTOPRAZOLE 40 MG TABLET.DR PO SCH (07:30)
[2022-11-14 07:42] LABS: CREATININE 0.4 mg/dL (0.6-1.3); MAGNESIUM 2.1 mg/dL (1.8-2.4); PHOSPHORUS 3.3 mg/dL (2.5-4.9); POTASSIUM 4.3 mmol/L (3.5-5.1)
[2022-11-14 07:50] LABS: CALCIUM, SERUM 8.5 mg/dL (8.5-10.1)
[2022-11-14] MEDS: FAMOTIDINE (20 MG) 20 MG TABLET PO SCH (07:58)
[2022-11-14] MEDS: CHOLECALCIFEROL 1,000 UNIT TABLET (VIT D3) PO SCH (07:58)
[2022-11-14] MEDS: PSYLLIUM SEED 1 PKT PACKET PO SCH (07:58)
[2022-11-14] MEDS: LISINOPRIL (10MG) 10 MG TABLET PO SCH (07:59)
[2022-11-14 08:00] VITALS: BP 130/79
[2022-11-14] MEDS ORDERED: FERR325T23 PO (08:53)
[2022-11-14] MEDS ORDERED: NITR100C6 PO (08:53)
[2022-11-14] MEDS ORDERED: ASCO500T10 PO (08:53)
[2022-11-14] MEDS ORDERED: PANT40TA2 PO (08:53)
[2022-11-14] MEDS ORDERED: VITAMIN B COMP W-C 1 TAB TABLET PO SCH (09:00)
== END 2022-11-14 10:59 | disposition home health service (06) | DRG 690 ==
LOC: ER 14:56 → TELE1 19:51
PROVIDERS: ADMIT Nurse Practitioner Family; ATTEND Nurse Practitioner Family
PROC: 05HC33Z Insertion of Infusion Device into Left Basilic Vein, Percutaneous Approach (ICD-10-PCS; principal; 2022-11-12)
DX: N39.0 Urinary tract infection, site not specified (principal); E87.1 Hypo-osmolality and hyponatremia; E87.6 Hypokalemia; I10 Essential (primary) hypertension; M19.90 Unspecified osteoarthritis, unspecified site; G89.29 Other chronic pain; Z88.1 Allergy status to other antibiotic agents; Z79.899 Other long term (current) drug therapy; D50.9 Iron deficiency anemia, unspecified; R73.9 Hyperglycemia, unspecified; M48.00 Spinal stenosis, site unspecified; B96.89 Other specified bacterial agents as the cause of diseases classified elsewhere; K21.9 Gastro-esophageal reflux disease without esophagitis; E34.328 Other genetic causes of short stature; F32.A Depression, unspecified; F41.0 Panic disorder [episodic paroxysmal anxiety]; Z98.891 History of uterine scar from previous surgery; F10.91 Alcohol use, unspecified, in remission
CPT/HCPCS: 36415; 71045-TC; 80048-TC; 80076-TC; 81001; 82728-TC; 83540-TC; 83735-TC; 83880; 84100-TC; 84443-TC; 84484-TC; 85025-TC; 87081-TC; 87086-TC; 97112-TC; 97116-TC; 97530-TC; A4223; C9803; G0378; J0696; J1650; J2060; J2916; J3480; J7030; J7050; J7060

== ENCOUNTER → 2023-01-15 | Emergency (ER) | payer BC, MEDICARE ==
[~2023-01-15] VITALS: Ht 121.9 cm; Wt 52.2 kg
[~2023-01-15] MED LIST changes: +ASCO500T10 PO; +BIOT10004 PO; +CEFTRIAXONE 1GM BAG (ER ONLY) 1 GM/50 ML PIGGYBACK IV ONE; +CEFTRIAXONE 1GM BAG (ER ONLY) 50 ML IV ONE; +CHLO25CA22 PO; +CHOL100043 PO; +FERR325T23 PO; +IV NS 0.9% 1,000 ML IV ONE; +LISI10TA29 PO; +LORAZEPAM 0.5 MG TABLET ONE; +LORAZEPAM 1 MG TABLET PO ONE; +MAGN400T26 PO; +MULT-1168 PO; +NITR100C6 PO; +OMEG1CAP PO; +PSYL0.5211 PO; -SUCR1ORA4 PO; +VITA1TAB56 PO
--- NOTE | 2023-01-15 07:43 | NUR ---
xray at bedside
--- NOTE | 2023-01-15 07:45 | NUR ---
adult health clinical nurse specialist at bedside
--- NOTE | 2023-01-15 07:47 | NUR ---
Isaak servin in ED - 01/15/23 at 0749 by JESSICA ROSALIE CALDERON FOR ORTHO CONSULT. WAITING FOR CALLBACK
[2023-01-15 08:00] LABS: BASOPHILS # (AUTO) 0.1 K/uL (0.0-0.2); BASOPHILS % (AUTO) 0.2 % (0.0-2.0); HEMATOCRIT 34 % (33-45); HEMOGLOBIN 11.4 g/dL (11.5-14.8); LYMPHOCYTES # (AUTO) 1.6 K/uL (0.8-4.8); LYMPHOCYTES % (AUTO) 7.1 % (20.0-44.0); MEAN CORPUSCULAR HGB CONC 34 g/dl (31.0-36.0); MEAN CORPUSCULAR VOLUME 81 fL (82-100); MONOCYTES # (AUTO) 2.9 K/uL (0.1-1.30); MONOCYTES % (AUTO) 12.9 % (2.0-12.0); NEUTROPHILS # (AUTO) 17.7 K/uL (1.8-8.9); NEUTROPHILS % (AUTO) 79.8 % (43.0-81.0); PLATELET COUNT (AUTO) 437 K/uL (150-450); RED BLOOD CELL COUNT(AUTO) 4.15 MIL/uL (4.0-5.2); WHITE BLOOD COUNT (AUTO) 22.2 K/uL (4.3-11.0)
[2023-01-15 08:32] LABS: CALCIUM, SERUM 9.6 mg/dL (8.5-10.1); CARBON DIOXIDE 31 mmol/L (21-32); CHLORIDE 87 mmol/L (98-107); CREATININE 0.6 mg/dL (0.6-1.3); GLUCOSE 143 mg/dL (74-106); POTASSIUM 3.8 mmol/L (3.5-5.1); SODIUM SERUM 129 mmol/L (136-145); UREA NITROGEN, BLOOD 29 mg/dL (7-18)
--- NOTE | 2023-01-15 09:19 | NUR ---
covid swab collected and sent to lab
--- NOTE | 2023-01-15 09:30 | NUR ---
urin sample collected and sent to lab
--- NOTE | 2023-01-15 10:07 | NUR ---
iv established. R Wrist 22G
[2023-01-15 10:40] VITALS: BP 122/78
[2023-01-15 10:43] LABS: BILIRUBIN,URINE NEGATIVE (NEGATIVE); COLOR,URINE YELLOW (YELLOW); LEUKOCYTE ESTERASE ,URINE 1+ (NEGATIVE); NITRITE, URINE NEGATIVE (NEGATIVE); PROTEIN,URINE NEGATIVE (NEGATIVE); UGLUCOSE NEGATIVE (NEGATIVE); UROBILINOGEN,URINE 0.2 EU/dL (0.2)
[2023-01-15 10:56] LABS: BACTERIA,URINE Few /HPF (None Seen); RBC,URINE 0-2 /HPF (0-2); SQUAMOUS EPITHELIAL CELL,UR Few /HPF (None Seen)
== END | disposition home or self-care (01) ==
LOC: ER 07:19
DX: R00.2 Palpitations (principal); N39.0 Urinary tract infection, site not specified; F41.9 Anxiety disorder, unspecified; R00.0 Tachycardia, unspecified; E86.0 Dehydration; D72.829 Elevated white blood cell count, unspecified; I10 Essential (primary) hypertension; Z20.822 Contact with and (suspected) exposure to COVID-19; Z98.890 Other specified postprocedural states; Z79.899 Other long term (current) drug therapy; F10.239 Alcohol dependence with withdrawal, unspecified; Z88.1 Allergy status to other antibiotic agents; Y90.0 Blood alcohol level of less than 20 mg/100 ml
CPT/HCPCS: 99285; 96374; 96361; 93005; 71045; 85025; 80048; 87086; 83605; 81001; 36415; 84484 ×2; 87426; 80320; J7030; J0696; C9803; G0480